=== PATIENT | male | born 1985 | race Caucasian/White ===

== ENCOUNTER 2016-10-17 08:33 | Emergency (ER) | payer OTHER ==
[~2016-10-17] VITALS: Ht 182.9 cm; Wt 109.1 kg
[2016-10-17 08:42] VITALS: BP 138/87; PULSE 100; RESP 16; O2SAT 97
--- NOTE | 2016-10-17 09:05 | ED.REPORT ---
HPI-Bite: Human/Animal Date of Service Oct 17, 2016 ED Provider: Severo Mcgee MD Patient is a 31 year old male who presents to the ED after concern for rabies exposure from a bat 3 days ago. The patient reports that he found a bat in the bathroom 1-2 hours after he had showered. He is concerned because he used a towel that was in the bathroom and was not sure if the bat had been on it or not. Patient was never asleep in a closed room with the bat but is unsure if he had been bit. He reports that he thinks that the bat must have flown in while his mother was bringing groceries inside because the window in the bathroom has a screen on it. The patient states that the bat is now and he has the bat at home. Nursing Notes Stated Complaint: BAT EXPOSURE Chief Complaint: Post Exposure Body Fluids Nursing Notes Reviewed: Yes Allergies: Coded Allergies: No Known Allergies (Unverified , 10/17/16) No Active Prescriptions or Reported Meds General Time Seen by MD: 09:04 Chief Complaint Bat bite Hx Obtained From: Patient Arrived By: Walk-in Onset Occurred: 3 days ago Symptom Duration: Since onset Severity: Current: No pain currently Similar Sx Previous: No Past Medical History Past Medical History none reported Smoking History Unknown if Ever Smoker Ambulatory Status Independent Review of Systems Constitutional: Denies: Chills, Fever Skin: Denies Itching, Denies Rash Complete sys rev & neg: except as marked. GI: Denies: Diarrhea, Nausea Allergy / Immune: Denies: Itching Physical Exam Vital Signs Vital Signs (First) Date Time Temp Pulse Resp B/P Pulse Ox O2 Delivery O2 Flow Rate FiO2 10/17/16 08:42 36.2 100 16 138/87 97 Room Air Initial VS: Reviewed General/Constitutional: Awake, Alert, No acute distress Skin: Atraumatic, Color NL, No rash, Warm, Dry Head / Eyes: Atraumatic, Normocephalic, PERRL, EOMI Respiratory / Chest: Atraumatic, No respiratory distress Upper Extremity / MS: Atraumatic, Inspection NL, Full range of motion Lower Extremity / Pelvis / MS: Atraumatic, Full range of motion Neurologic: Oriented X3, Speech NL Psychiatric: Affect NL, Mood NL Re-Eval/Medical Decision Re-Evaluation/Progress : Time of Eval: 09:31 Re-Evaluation/Progress Note: Discussed plan for rabies testing with the health department. Plan for discharge. Patient understands and agrees to plan. All questions were addressed. Counseled Regarding: Diagnosis, Need for follow-up, When/why to return to ED Discharge & Departure Impression: Primary Impression: Exposure to bat without known bite Disposition: Home Discharge Condition All VS Reviewed: Yes Condition: Stable Patient Instructions: Animal Bite (ED) Additional Instructions: Contact the Health Department tomorrow morning at [phone] for further instructions on shipping the bat. They have 10 days to do the testing and will contact you if you need to get treated for rabies. Attached are instructions on how to handle and store the bat until you are able to give it to the Health department. Return to the emergency department if you develop new or concerning symptoms. Referrals: Ada Abreu MD (PCP) [facility] Attestation Portions of this note were transcribed by Pamela Pope. I, Dr. Mcgee personally performed the history, physical exam and medical decision-making; I reviewed and confirmed the accuracy of the information in the transcribed note. Signed by: Hyacinth Langston, 10/17/16 copies to: Ada Abreu MD, Kirk H MD Oct 17, 2016 09:05 Christa Pope Oct 17, 2016 09:15 Severo Mcgee MD Oct 17, 2016 09:05 Christa Pope Oct 17, 2016 09:15
[2016-10-17 10:17] VITALS: BP 138/87; PULSE 100; RESP 16; O2SAT 97
== END 2016-10-17 10:18 | disposition home or self-care (01) ==
LOC: SED 08:34
DX: Z20.3 Contact with and (suspected) exposure to rabies (principal)